=== PATIENT | male | born 1955 | race Caucasian/White ===

== ENCOUNTER 2017-02-15 19:32 | Emergency (ER) | payer BC ==
[~2017-02-15] VITALS: Ht 182.9 cm; Wt 100.0 kg
[2017-02-15 20:14] VITALS: TEMP 101
[2017-02-15 20:14] LABS: BASO % 0.2 % (0.0-2.0); EOS % 0.2 % (0-4.0); GRAN # 3.9 (1.4-6.5); GRAN % 78.1 % (42.2-75.2); HEMOGLOBIN 14.8 g/dl (13.5-18.0); LYMPH # 0.8 (1.2-3.4); LYMPH % 15.1 % (20.0-51.0); MEAN CELL VOLUME 85 fl (80.0-100.0); MEAN CORPUSCULAR HEMOGLOBIN 29 pg (27.0-31.0); MEAN CORPUSCULAR HGB CONC 34 g/dl (33.0-37.0); MEAN PLATELET VOLUME 10.6 fl (7.4-10.4); MONO # 0.3 (0.1-0.6); MONO % 6.2 % (1.7-9.3); PLATELET COUNT 102 K/mm3 (130-400); RED BLOOD COUNT 5.08 M/mm3 (4.20-5.60); REDCELL DISTRIBUTION WIDTH-CV 13.6 % (11.5-14.5)
[2017-02-15] MEDS ORDERED: TIROSINT150 MC1 PO (20:14)
[2017-02-15 20:23] LABS: C-REACTIVE PROTEIN 1.7 mg/dL (0.0-0.9); CALCIUM 10.1 mg/dL (8.4-10.2); CREATININE, serum 0.75 mg/dL (0.66-1.25)
[2017-02-15 21:05] LABS: ERYTHROCYTE SEDIMENTATION RATE 18 mm/hr (0-30)
[2017-02-15] MEDS ORDERED: ULTRAM 50MG TAB50 MG PO (21:49)
[2017-02-15] MEDS ORDERED: PERCOCET 325 MG1 TA2 PO (21:49)
[2017-02-15] MEDS ORDERED: CEFZIL500 MG PO (21:49)
[2017-02-15 22:35] LABS: CEREBROSPINAL TUBE #4; CSF APPEARANCE CLEAR; CSF COLOR COLORLESS
[2017-02-15 23:31] VITALS: BP 124/85; PULSE 76
== END 2017-02-15 23:40 | disposition home or self-care (01) ==
LOC: COL.ER 19:32
PROVIDERS: Emergency Medicine
DX: R51 Headache (principal); J32.4 Chronic pansinusitis; R50.9 Fever, unspecified; M54.2 Cervicalgia
CPT/HCPCS: J1170; J1885

== ENCOUNTER 2019-01-13 06:52 | Day surgery (SDC) | payer OTHER ==
[~2019-01-13] VITALS: Ht 182.9 cm; Wt 110.0 kg
[~2019-01-13 06:52] MED LIST: CEFZIL500 MG PO; PERCOCET 325 MG1 TA2 PO; TIROSINT150 MC1 PO; ULTRAM 50MG TAB50 MG PO
[2019-01-13] MEDS ORDERED: ALLEGRA ALLERG180 MG PO (07:16)
[2019-01-13 07:21] VITALS: BP 141/90; PULSE 85; TEMP 98.3
[2019-01-13 08:55] VITALS: BP 132/78; PULSE 85; TEMP 97.7
--- NOTE | 2019-01-13 08:55 | NUR ---
Pt to GI bay 1 via cart from [place]. Pt drowsy, but awake and answers questions appropriately. Denies pain or nausea. Pt ambulates to recliner with stand by assistance. Warm blankets provided. Muffin and coffee given per pt request. in room. Will continue to monitor. Call light within reach.
[2019-01-13 09:10] VITALS: BP 126/88; PULSE 73
--- NOTE | 2019-01-13 09:10 | NUR ---
Pt continues to rest. Tolerating food and fluids without difficulties. Will continue to monitor. Call light within reach.
[2019-01-13 09:25] VITALS: BP 120/83; PULSE 78
--- NOTE | 2019-01-13 09:25 | NUR ---
Discharge instructions reviewed. Pt voices understanding. IV site discontinued with all parts intact. Pt up to dress. Call light within reach.
--- NOTE | 2019-01-13 09:35 | NUR ---
Pt and exited unit without nurse. Pt discharged at this time.
== END 2019-01-13 09:35 | disposition home or self-care (01) ==
LOC: SDCO 06:52
DX: Z12.11 Encounter for screening for malignant neoplasm of colon (principal); K64.0 First degree hemorrhoids; E03.9 Hypothyroidism, unspecified; D86.9 Sarcoidosis, unspecified; Z86.010 Personal history of colon polyps
CPT/HCPCS: J2250; J2405; J3010; J7030

== ENCOUNTER → 2019-02-26 | Outpatient (CLI) | payer OTHER ==
[~2019-02-26] MED LIST changes: +ALLEGRA ALLERG180 MG PO
== END ==
LOC: COL.RAD 07:11
DX: K74.69 Other cirrhosis of liver (principal); R16.1 Splenomegaly, not elsewhere classified

== ENCOUNTER → 2019-09-11 | Outpatient (CLI) | payer OTHER | LOC: COL.RAD 07:10 | DX: K74.69 Other cirrhosis of liver (principal) ==

== ENCOUNTER 2024-06-17 21:36 | Inpatient (IN) | payer MEDICARE ==
[~2024-06-17] VITALS: Ht 182.9 cm; Wt 99.6 kg
[2024-06-17] MEDS ORDERED: Pantoprazole 40 MG in NS 10 ML IV ONE (22:15)
[2024-06-17] MEDS ORDERED: NS 1,000 ML IV ONE (22:15)
[2024-06-17 22:51] LABS: BASO % 0.3 % (0.0-2.0); EOS % 0.3 % (0.0-4.0); GRAN # 2.4 K/mm3 (1.4-6.5); LYMPH % 27.5 % (20.0-51.0); MEAN CELL VOLUME 90 fl (80.0-100.0); MEAN CORPUSCULAR HGB CONC 33 g/dl (33.0-37.0); MEAN PLATELET VOLUME 9.6 fl (7.4-10.4); MONO # 0.3 K/mm3 (0.1-0.6); MONO % 8.6 % (1.7-9.3); PLATELET COUNT 142 K/mm3 (130-400); RED BLOOD COUNT 2.55 M/mm3 (4.20-5.60); REDCELL DISTRIBUTION WIDTH-CV 15.7 % (11.5-14.5)
[2024-06-17 22:54] LABS: HEMOGLOBIN 7.5 g/dl (13.5-18.0); MEAN CORPUSCULAR HEMOGLOBIN 29 pg (27-31)
[2024-06-17 22:56] LABS: INR 1.2 (0.8-3.0); PROTHROMBIN TIME 12.6 SECONDS (9.7-12.8)
[2024-06-17 23:09] LABS: ALBUMIN 4.1 g/dL (3.4-4.8); BILIRUBIN,TOTAL 0.6 mg/dL (0.2-1.2); CALCIUM 9.7 mg/dL (8.4-10.2); CREATININE, serum 0.99 mg/dL (0.72-1.25); POTASSIUM 3.9 mEq/L (3.5-4.5); TOTAL PROTEIN 6.6 g/dl (6.2-8.1)
[2024-06-17] MEDS ORDERED: NS 1,000 ML IV SCH (23:15)
[2024-06-17] MEDS ORDERED: GLUCOPHAGE500 MG/TAB PO (23:20)
[2024-06-17] MEDS ORDERED: Atorvastatin 20 MG TAB PO SCH (23:21)
[2024-06-17] MEDS ORDERED: LIPITOR20 MG PO (23:21)
[2024-06-17] MEDS ORDERED: EUTHYROX137 MCG PO (23:21)
[2024-06-18] VITALS (24 sets, daily range): BP systolic 101–148; BP diastolic 40–80; PULSE 70–91; TEMP 97.6–98.7
[2024-06-18 01:18] LABS: PH 5.5 (5.0-8.5); URINE APPEARANCE CLEAR (CLEAR/HAZY); URINE BLOOD NEGATIVE (NEGATIVE); URINE COLOR YELLOW (YELLOW); URINE GLUCOSE NEGATIVE (NEGATIVE); URINE KETONE NEGATIVE (NEGATIVE); URINE NITRATE NEGATIVE (NEGATIVE); URINE PROTEIN(semi-quant) NEGATIVE (NEGATIVE); URINE UROBILINOGEN 0.2 E.U/dL (0.2-1.0)
[2024-06-18 01:28] LABS: COLLECTION METHOD CLEAN CATCH
[2024-06-18] MEDS ORDERED: Iohexol 300 - 100 ML VIAL IV ONE (01:30)
[2024-06-18] MEDS ORDERED: Dextrose 50% Water 25 GM/50 ML SYRINGE IV PRN (01:30)
[2024-06-18] MEDS ORDERED: NS 100 ML IV ONE (01:30)
[2024-06-18] MEDS ORDERED: Glucagon 1 MG VIAL IM PRN (01:30)
[2024-06-18] MEDS ORDERED: Dextrose (Glucose) 15 GM (4 x 3.75 GM) Chewable TABLET PACK PO PRN (01:30)
[2024-06-18] MEDS ORDERED: cefTRIAXone 1 G in Water For Injection,Sterile 10 ML IV SCH (02:30)
[2024-06-18] MEDS ORDERED: Octreotide 500 MCG in NS 500 ML IV ONE (02:30)
--- NOTE | 2024-06-18 02:30 | NUR ---
RECEIVED CRITICAL LOW HEMOGLOBIN OF 5.7, AFTER DISCUSSING WITH HOSPITALIST GORDON DON, WILL TRANSFUSE 1 UNIT PR[facility] THEN RECHECK H&H ONE HOUR FOLLOWING TRANSFUSION.
[2024-06-18 02:34] LABS: HEMATOCRIT 17.3 % (42.0-52.0); HEMOGLOBIN 5.7 g/dl (13.5-18.0)
--- NOTE | 2024-06-18 02:35 | NUR ---
LAB CALLED NURSING STATION TO REPORT LOW CRITICAL HGB OF 5.7 AND HCT OF 17.3. HOSPITALIST AMARIS DON APRN CALLED AND ORDERS RECIEVED TO TRANSFUSE 1 UNIT OF [facility], ALONG WITH TO CHECK H&H ONE HOUR POST TRANSFUSION.
--- NOTE | 2024-06-18 04:05 | NUR ---
WHEN SCANNING EXPIRATION DATE ON ISSUED UNIT OF [facility], [facility] WOULD NOT RECOGNIZE EXPIRATION DATE ON THE UNIT STATING THAT IT DID NOT MATCH,, HOWEVER, WHEN DOING 2 PERSON VERIFICATION ALL NOTED EXPIRATION DATES MATCHED WHAT WAS ISSUED BY BLOOD BANK. CALLED BLOOD BANK AND DISCUSSED SITUATION WITH LISSET AND WAS TOLD IT IS OKAY TO OVERRIDE.
[2024-06-18] MEDS ORDERED: Acetaminophen 325 MG TAB PO PRN (04:15)
[2024-06-18] MEDS ORDERED: Insulin Lispro (HumaLOG) SQ SCH (06:00)
[2024-06-18] MEDS ORDERED: Levothyroxine 0.112 MG,Levothyroxine 0.025 MG PO SCH (07:00)
[2024-06-18 07:15] LABS: HEMOGLOBIN 6.2 g/dl (13.5-18.0)
[2024-06-18 07:16] LABS: HEMATOCRIT 18.7 % (42.0-52.0)
--- NOTE | 2024-06-18 07:17 | NUR ---
Recieved report from plate embosser nurse Codi. Pt is alseepin bed on room air. Pt has normal saline running at 125 mL/hr with a piggyback medication octreotide running at 50 mcg/hr in his right wrist IV site. pt's bed is at lowest level and call light is within reach
--- NOTE | 2024-06-18 07:20 | NUR ---
Notified Tati ARRIETA of pts hemoglobin, new orders received
[2024-06-18] MEDS ORDERED: Ondansetron 4 MG/2 ML VIAL IV PRN ×2 (08:15→13:45)
[2024-06-18] MEDS ORDERED: Pantoprazole 40 MG in NS 10 ML IV SCH (09:00)
--- NOTE | 2024-06-18 10:33 | NUR ---
Pt doing okay today. Pt had some complaints of a headache, PRN tylenol given. Discussed upcoming EGD with him, no questions at this time. Pt is sitting on the side of the bed at this time. Transfusing blood at 60ml/hr.
--- NOTE | 2024-06-18 12:19 | NUR ---
D: Project Officer stopped by room on rounds. A: Pt was resting and content with significant other in the room. Pt has no needs right now. P: Project Officer informed pt that if he needed anything from the manager printing area to let his nurse know. Project Officer will follow up as needed.
[2024-06-18] MEDS ORDERED: Lidocaine PF 2% (20 MG/ML) 5 ML VIAL ONE (12:25)
--- NOTE | 2024-06-18 12:46 | NUR ---
jewelry bench worker met with pt to discuss discharge planning. He reports to live with his partner, Emilia [phone] in [place]. He sees BERNY Rodriguez for PCP needs and obtains medications from [facility] with no difficulties. He verified his insurance as Medicare [employer]. He reports to be independent with ADLS and uses no DME. He did not have a DPOA-HC, but wanted to complete one. SW and Pharmacist Mike witnessed pt's signature notating girlfriend, Emilia then daughter, César Pacheco. Copy/original provided and copy in chart. Discharge Plan: home
--- NOTE | 2024-06-18 13:01 | NUR ---
Blood has finished, no signs of reaction. Anjelica here to get pt for EGD. SO in room and followed down
[2024-06-18] MEDS ORDERED: NS 1,000 ML IV ONE (13:05)
[2024-06-18 14:38] LABS: HEMATOCRIT 21.8 % (42.0-52.0); HEMOGLOBIN 7.3 g/dl (13.5-18.0)
[2024-06-18] MEDS ORDERED: Polyethylene Glycol 3350 119 GM BOTTLE PO SCH (17:00)
--- NOTE | 2024-06-18 17:40 | NUR ---
Miralax has not arrived on the unit yet, called pharmacy to have it delivered
--- NOTE | 2024-06-18 21:12 | NUR ---
PATIENT RESTING IN BED WITH EYES CLOSED. EASILY ROUSED. HAS COMPLETED THE FIRST HALF OF HIS BOWEL PREP AND IS READY FOR SECOND HALF. IS HAVING SOME DISCOMFORT IN HIS ABDOMEN RATED 5/10. DENIES ANY OTHER NEEDS AT THIS TIME. CALL LIGHT WITHIN REACH. BED IS LOCKED AND IN LOW POSITION
[2024-06-19] VITALS (7 sets, daily range): BP systolic 102–123; BP diastolic 47–65; PULSE 67–73; TEMP 97.6–98.8
[2024-06-19 07:37] LABS: BASO % 0.4 % (0.0-2.0); EOS % 1.8 % (0.0-4.0); GRAN # 1.5 K/mm3 (1.4-6.5); GRAN % 64.5 % (42.2-75.2); LYMPH # 0.6 K/mm3 (1.2-3.4); LYMPH % 26.3 % (20.0-51.0); MEAN CELL VOLUME 90 fl (80.0-100.0); MEAN CORPUSCULAR HGB CONC 33 g/dl (33.0-37.0); MEAN PLATELET VOLUME 10.3 fl (7.4-10.4); MONO # 0.2 K/mm3 (0.1-0.6); MONO % 6.6 % (1.7-9.3); PLATELET COUNT 114 K/mm3 (130-400); RED BLOOD COUNT 2.62 M/mm3 (4.20-5.60); REDCELL DISTRIBUTION WIDTH-CV 15.7 % (11.5-14.5)
[2024-06-19 07:50] LABS: HEMATOCRIT 23.6 % (42.0-52.0); HEMOGLOBIN 7.8 g/dl (13.5-18.0); MEAN CORPUSCULAR HEMOGLOBIN 30 pg (27-31)
--- NOTE | 2024-06-19 08:39 | NUR ---
0830- Patient transported from medical unit to endoscopy for colonoscopy procedure. Consents and ticket to ride signed and attached to chart for transport team. 20G right hand IV infusing LR at 30mL/h by gravity drip.
[2024-06-19 08:52] LABS: ALBUMIN 3.6 g/dL (3.4-4.8); BILIRUBIN,TOTAL 0.8 mg/dL (0.2-1.2); CALCIUM 8.6 mg/dL (8.4-10.2); CREATININE, serum 0.81 mg/dL (0.72-1.25); POTASSIUM 3.7 mEq/L (3.5-4.5); TOTAL PROTEIN 6.1 g/dl (6.2-8.1)
[2024-06-19] MEDS ORDERED: Lidocaine PF 2% (20 MG/ML) 5 ML VIAL ONE (08:53)
[2024-06-19] MEDS ORDERED: Influenza Virus Vaccine, Hi-Dose Triv '24-25 (65 YR+) 0.5 ML SYRINGE IM SCH (09:00)
--- NOTE | 2024-06-19 10:03 | NUR ---
Patient transported back to room 309 via stretcher from endoscopy post colonoscopy. Pt is A&Ox4, VS stable and returned back to bed. Bed lowered and locked, call long within reach and family bedside with patient. Post OP blood pressure in progress.
--- NOTE | 2024-06-19 10:10 | NUR ---
Patient is A&Ox4, sitting up in bed. Patient reports 5/10 aching abdominal pain. Patient refuses any pain medication at the moment. Patient's diet order has changed from NPO to diabetic. Planning for discharge today. Patient has a 20G right hand with NS infusing at 125mL/h and a right wrist 20G IV that is saline locked. Patient is NSR on telemetry and denies any other complaints at this moment. Patient is bedside, call long within reach.
[2024-06-19] MEDS ORDERED: REGLAN 5MG T5 MG/TAB PO (10:46)
[2024-06-19] MEDS ORDERED: PROTONIX 40MG T40 MG PO (12:35)
--- NOTE | 2024-06-19 15:20 | NUR ---
Discharge instructions, medications and appointments reviewed with patient. Patient verbalized understanding of all education. IV in right hand and wrist removed removed and catheter intact. All patient belongings within patient's reach. Patient transported via wheelchair accompained by his significant other to personal vehicle and discharged to home.
== END 2024-06-19 15:20 | disposition home or self-care (01) | DRG 432 ==
LOC: COL.ER 21:36 → MEDICAL 23:13
PROVIDERS: Internal Medicine Gastroenterology; Nurse Practitioner Family; Physician Assistant; ADMIT Hospitalist
PROC: 0DB98ZX Excision of Duodenum, Via Natural or Artificial Opening Endoscopic, Diagnostic (ICD-10-PCS; 2024-06-18)
PROC: 0DB68ZX Excision of Stomach, Via Natural or Artificial Opening Endoscopic, Diagnostic (ICD-10-PCS; 2024-06-18)
PROC: 30233N1 Transfusion of Nonautologous Red Blood Cells into Peripheral Vein, Percutaneous Approach (ICD-10-PCS; principal; 2024-06-18 13:00)
DX: K74.60 Unspecified cirrhosis of liver (principal); I85.11 Secondary esophageal varices with bleeding; D62 Acute posthemorrhagic anemia; E87.20 Acidosis, unspecified; R65.10 Systemic inflammatory response syndrome (SIRS) of non-infectious origin without acute organ dysfunction; I27.82 Chronic pulmonary embolism; E03.9 Hypothyroidism, unspecified; E11.9 Type 2 diabetes mellitus without complications; R16.1 Splenomegaly, not elsewhere classified; K44.9 Diaphragmatic hernia without obstruction or gangrene; K21.9 Gastro-esophageal reflux disease without esophagitis; I35.1 Nonrheumatic aortic (valve) insufficiency; I71.20 Thoracic aortic aneurysm, without rupture, unspecified; E78.5 Hyperlipidemia, unspecified; Z79.899 Other long term (current) drug therapy; Z79.890 Hormone replacement therapy; Z86.19 Personal history of other infectious and parasitic diseases; Z79.84 Long term (current) use of oral hypoglycemic drugs
CPT/HCPCS: J0696; J2354-JA; J2470; J2704; J7030; J7040; P9016; Q9967